=== PATIENT | female | born 1985 | race Caucasian/White ===

== ENCOUNTER 2016-05-01 12:06 | Emergency (ER) | payer OTHER ==
[2016-05-01 12:49] VITALS: BP 117/62; PULSE 93; RESP 14; TEMP 98.3; O2SAT 97
[2016-05-01] MEDS ORDERED: valACYclovir 500 MG TAB PO ONE (13:30)
[2016-05-01] MEDS ORDERED: predniSONE 20 MG TAB PO ONE (13:30)
[2016-05-01] MEDS ORDERED: ACYCLOVIR 400 MG PREPACK#4 BTL TAKEHOME ONE (13:31)
[2016-05-01] MEDS ORDERED: FLUORESCEIN SODIUM 1 MG STRIP OP ONE (13:32)
[2016-05-01] MEDS ORDERED: PROPARACAINE 0.5% 15 ML OPHT DROP ONE (13:32)
--- NOTE | 2016-05-01 13:38 | UCPHY ---
H & P Patient Type: New Chief Complaint Nursing Narrative: yesterday started with facial bump rash . today worse. only on face and head. Not very itchy. Denies new products. Denies any recent travel . Denies f/c Time Seen by Provider: 05/01/16 13:23 HPI/ROS: CHIEF COMPLAINT: Rash HISTORY OF PRESENT ILLNESS: The patient is a 30-year-old female who comes to the Urgent Care complaining of a rash over her forehead and right side of her face. It began yesterday. It is itchy and painful. No purulence. No vision or hearing changes. She does have a history of chickenpox as a child. No fevers. REVIEW OF SYSTEMS: Constitutional: denies: chills, fever, recent illness, recent injury EENTM: denies: blurred vision, double vision, nose congestion Respiratory: denies: cough, shortness of breath Cardiac: denies: chest pain, irregular heart rate, lightheadedness, palpitations Gastrointestinal/Abdominal: denies: abdominal pain, diarrhea, nausea, vomiting, blood streaked stools Genitourinary: denies: dysuria, frequency, hematuria, pain Musculoskeletal: denies: joint pain, muscle pain Skin: See HPI Neurological: denies: headache, numbness, paresthesia, tingling, dizziness, weakness Hematologic/Lymphatic: denies: blood clots, easy bleeding, easy bruising Immunologic/allergic: denies: HIV/AIDS, transplant EXAM: GENERAL: Well-appearing, well-nourished and in no acute distress. HEAD: Atraumatic, normocephalic. EYES: no visible dendritic lesions1 examined with slit lamp and fluorescein, Pupils equal round and reactive to light, extraocular movements intact, sclera anicteric, conjunctiva are normal. ENT: No visible lesions on tympanic membrane or nose. TMs normal, nares patent , oropharynx clear without exudates. Moist mucous membranes. NECK: Normal range of motion, supple without lymphadenopathy or JVD. LUNGS: Breath sounds clear to auscultation bilaterally and equal. No wheezes rales or rhonchi. HEART: Regular rate and rhythm without murmurs, rubs or gallops. ABDOMEN: Soft, nontender, normoactive bowel sounds. No guarding, no rebound. No masses appreciated. BACK: No CVA tenderness, no spinal tenderness, step-offs or deformities EXTREMITIES: Normal range of motion, no pitting or edema. No clubbing or cyanosis. NEUROLOGICAL: Cranial nerves II through XII grossly intact. Normal speech, normal gait. 5/5 strength, normal movement in all extremities, normal sensation PSYCH: Normal mood, normal affect. SKIN: Varicella type rash to right lateral forehead and temporal area, Source: Patient Exam Limitations: No limitations - Personal History LMP (Females 10-55): 1-7 Days Ago - Medical/Surgical History Hx Asthma: No Hx Chronic Respiratory Disease: No Hx Diabetes: No Hx Cardiac Disease: No Hx Renal Disease: No Hx Cirrhosis: No Hx Alcoholism: No Other PMH: PCP none. FLU vacc NONE. tet ?? Denies med surg. hx - Family History Significant Family History: No pertinent family hx - Social History Smoking Status: Current some day smoker Alcohol Use: None Drug Use: None Constitutional: Initial Vital Signs Temperature (C) 36.8 C 05/01/16 12:45 Heart Rate 93 05/01/16 12:45 Respiratory Rate 14 05/01/16 12:45 Blood Pressure 117/62 05/01/16 12:45 O2 Sat (%) 97 05/01/16 12:45 O2 Delivery Mode Room Air Allergies/Adverse Reactions: No Known Allergies Allergy (Unverified 05/01/16 13:04) Home Medications: Medication Instructions Recorded Acyclovir 800 mg PO 5XD #35 tab 05/01/16 Hydrocodone/APAP 5/325 [[place] 1 - 2 each PO Q4 PRN #14 tab 05/01/16 5/325] Valacyclovir HCl [Valtrex] 1,000 mg PO TID #21 tab 05/01/16 predniSONE 60 mg PO DAILY #15 tab 05/01/16 Medical Decision Making ED Course/Re-evaluation: The patient has an early break out of shingles. I will start her on valacyclovir, steroids and pain medication. No visible lesions to her nose, tympanic membrane or on I but it does clearly involve the 1st branch of the 5th cranial nerve. I will have her follow up with Ophthalmology. We discussed valacyclovir versus acyclovir. I will write her prescription for both and she will take him to the pharmacy to decide. Differential Diagnosis: Partial list of the Differential diagnosis considered include but were not limited to; shingles, cellulitis, abscess and although unlikely based on the history and physical exam, I also considered allergic reaction, trauma, burn. I discussed these differential diagnoses and the plan with the patient as well as the usual and expected course. The patient understands that the diagnosis is provisional and that in medicine we are not always correct and that further workup is often warranted. Usual and customary warnings were given. All of the patient's questions were answered. The patient was instructed to return to the emergency department should the symptoms at all worsen or return, otherwise to followup with the physician as we discussed. Departure - Departure Disposition: Home, Routine, Self-Care Clinical Impression: Shingles Condition: Fair Instructions: Shingles (ED) Referrals: NONE *PRIMARY CARE P,. [Primary Care Provider] - As per Instructions Lito Royal MD [Medical Doctor] - As per Instructions Stand Alone Forms: Work Excuse Prescriptions: Acyclovir 800 mg PO 5XD #35 tab Hydrocodone/APAP 5/325 [[place] 5/325] 1 - 2 each PO Q4 PRN #14 tab PRN Reason: Pain, Mild Valacyclovir HCl [Valtrex] 1,000 mg PO TID #21 tab predniSONE 60 mg PO DAILY #15 tab - PQRS PQRS Measurement: Not applicable
== END 2016-05-01 13:55 | disposition home or self-care (01) ==
LOC: CED 12:06
DX: B02.9 Zoster without complications (principal)
CPT/HCPCS: 99204-PO; G0463-PO